=== PATIENT | female | born 1985 | race Caucasian/White ===

== ENCOUNTER 2017-09-18 11:06 | Emergency (ER) | payer OTHER ==
[2017-09-18 12:10] VITALS: BP 127/64
--- NOTE | 2017-09-18 12:42 | UC ---
Respiratory Complaint HPI - HPI Summary HPI Summary: cough x 1 week chest congest, nasal congestion , pnd, no fever, no chills , no sob 2. skin rash on the palms of both hands / and platar feet x years , not itchy , has been using antifungal cram wo improvement - History of Current Complaint Chief Complaint: UCGeneralIllness Stated Complaint: COUGH/NAUSEA/SKIN COMPLAINT Time Seen by Provider: 09/18/17 12:11 Hx Obtained From: Patient Hx Last Menstrual Period: N/A Onset/Duration: Gradual Onset, Lasting Weeks - 1, Still Present Timing: Constant Severity Initially: Moderate Severity Currently: Moderate Pain Intensity: 0 Pain Scale Used: 0-10 Numeric Character: Cough: Nonproductive Aggravating Factors: Exertion, Deep Breaths Alleviating Factors: Nothing Associated Signs And Symptoms: Positive: URI, Nasal Congestion. Negative: Dyspnea, Fever, Chills, Pleuritic Chest Pain, Hemoptysis, Dizziness, Calf Pain, Calf Swelling - Allergies/Home Medications Allergies/Adverse Reactions: Allergies Allergy/AdvReac Type Severity Reaction Status Date / Time No Known Allergies Allergy Verified 09/18/17 12:10 PMH/Surg Hx/FS Hx/Imm Hx - Additional Past Medical History Additional PMH: gestational diabetes - Surgical History Surgical History: Yes Surgery Procedure, Year, and Place: tubal ligation 2011. c-sections x3. appendectomy. partial hysterectomy 2013 - Family History Known Family History: Positive: None, Other - positive FMH for myalgia Negative: Cardiac Disease - Social History Alcohol Use: Rare Substance Use Type: None Smoking Status (MU): Heavy Every Day Tobacco Smoker Type: Cigarettes Amount Used/How Often: 1 ppd Length of Time of Smoking/Using Tobacco: started at age 16 Have You Smoked in the Last Year: Yes - Immunization History Most Recent Tetanus Shot: 2008 OR 2009 Review of Systems Constitutional: Negative Skin: Rash Eyes: Negative ENT: Nasal Discharge Respiratory: Cough Cardiovascular: Negative Gastrointestinal: Negative Is Patient Immunocompromised?: No All Other Systems Reviewed And Are Negative: Yes Physical Exam Triage Information Reviewed: Yes Appearance: Well-Appearing, No Pain Distress, Well-Nourished Vital Signs: Initial Vital Signs Temp 98.4 F 09/18/17 12:05 Pulse 66 09/18/17 12:05 Resp 18 09/18/17 12:05 BP 127/64 09/18/17 12:05 Pulse Ox 100 01/09/18 12:05 Vital Signs Reviewed: Yes Eyes: Positive: Conjunctiva Clear ENT: Positive: Normal ENT inspection, Hearing grossly normal, Pharynx normal, Nasal congestion Neck exam: Normal Neck: Positive: Supple, Nontender, No Lymphadenopathy Respiratory: Positive: Chest non-tender, Lungs clear, Normal breath sounds Cardiovascular: Positive: RRR, No Murmur, Pulses Normal Abdomen Description: Positive: Nontender, No Organomegaly, Soft Musculoskeletal: Positive: Strength Intact, ROM Intact, No Edema Skin: Positive: rashes - macular rash bilateral palms and plantar foot bilateral UC Diagnostic Evaluation - Laboratory O2 Sat by Pulse Oximetry: 100 Respiratory Course/Dx - Differential Dx/Diagnosis Provider Diagnoses: viral bronchitis. tinea manus. tinea pedis. tinea unguium Discharge - Discharge Plan Condition: Stable Disposition: HOME Prescriptions: Guaifenesin-Codeine [Cheratussin AC] 10 ml PO Q8H #120 ml MDD 30 ml Patient Education Materials: Acute Bronchitis (ED), Skin Yeast Infection (ED) Referrals: No Primary Care Phys,NOPCP [Primary Care Provider] - 7 Days Jordy VILLAFANA,Cuong Walker [Medical Doctor] - As Soon As Possible Additional Instructions: fungal infection of hands/ feet and fingernails will make a referral to Dermatology for eval and tx
== END 2017-09-18 12:31 | disposition home or self-care (01) ==
LOC: UCCORT 11:06
DX: J20.8 Acute bronchitis due to other specified organisms (principal); B35.2 Tinea manuum; B35.3 Tinea pedis; B35.1 Tinea unguium; Z72.0 Tobacco use
CPT/HCPCS: 99212; G0463

== ENCOUNTER 2017-11-05 13:24 | Emergency (ER) | payer OTHER ==
[2017-11-05 14:52] VITALS: BP 126/74
--- NOTE | 2017-11-05 14:59 | ED ---
Respiratory - HPI Summary HPI Summary: 31 yr old with influenza in her household presents here with nasal congestion, scratchy throat, cough, myalgias, chills. Onset yesterday. Her was positive for flu according to the patient. The patient states she did not get the flu vaccine. She denies other complaints. - History of Current Complaint Chief Complaint: UCGeneralIllness Stated Complaint: HEADACHE CHILLS SORE THROAT Time Seen by Provider: 11/05/17 14:44 Pain Intensity: 2 - Allergy/Home Medications Allergies/Adverse Reactions: Allergies Allergy/AdvReac Type Severity Reaction Status Date / Time No Known Allergies Allergy Verified 11/05/17 14:48 Home Medications: Home Medications DOXYcycline CAP(*) [DOXYcycline 100MG CAP(*)] 100 mg PO BID 11/05/17 [History Confirmed 11/05/17] Methotrexate TAB* 2.5 mg PO Q7D 11/05/17 [History Confirmed 11/05/17] PMH/Surg Hx/FS Hx/Imm Hx Endocrine/Hematology History: Comment Only: Hx Diabetes - gestational diabetes - Surgical History Surgery Procedure, Year, and Place: tubal ligation 2011. c-sections x3. appendectomy. partial hysterectomy 2013 Infectious Disease History: No Infectious Disease History: Reports: Hx Shingles - 2009 Denies: Traveled Outside the [place] in Last 30 Days - Family History Known Family History: Positive: None, Other - positive FMH for myalgia Negative: Cardiac Disease - Social History Alcohol Use: None Substance Use Type: Reports: None Smoking Status (MU): Heavy Every Day Tobacco Smoker Type: Cigarettes Amount Used/How Often: 1 ppd Length of Time of Smoking/Using Tobacco: started at age 16 Have You Smoked in the Last Year: Yes Review of Systems Positive: Fever, Chills Positive: Sore Throat, Nasal Discharge Positive: Cough Positive: Myalgia Positive: Headache All Other Systems Reviewed And Are Negative: Yes Physical Exam Triage Information Reviewed: Yes Vital Signs On Initial Exam: Initial Vitals Temp Pulse Resp BP Pulse Ox 99.2 F 79 18 126/74 100 11/05/17 14:44 11/05/17 14:44 11/05/17 14:44 11/05/17 14:44 11/05/17 14:44 Vital Signs Reviewed: Yes Appearance: Positive: Well-Appearing, No Pain Distress Skin: Positive: Warm Head/Face: Positive: Normal Head/Face Inspection Eyes: Positive: EOMI Neck: Positive: Nontender Respiratory/Lung Sounds: Positive: Clear to Auscultation, Breath Sounds Present Cardiovascular: Positive: RRR. Negative: Murmur Abdomen Description: Positive: Nontender Musculoskeletal: Positive: Strength/ROM Intact Neurological: Positive: Sensory/Motor Intact, Alert, Oriented to Person Place, Time, CN Intact II-III Psychiatric: Positive: Normal - Oscar Coma Scale Best Eye Response: 4 - Spontaneous Best Motor Response: 6 - Obeys Commands Best Verbal Response: 5 - Oriented Coma Scale Total: 15 Diagnostics - Vital Signs Vital Signs Temp Pulse Resp BP Pulse Ox 11/05/17 14:44 99.2 F 79 18 126/74 100 - Laboratory Lab Statement: Any lab studies that have been ordered have been reviewed, and results considered in the medical decision making process. Disposition - Course Course Of Treatment: 31 yr old female with Influenza symptoms and she states confirmed cases in her household. Rx with tamiflu. - Diagnoses Provider Diagnoses: Influenza Discharge - Discharge Plan Condition: Good Disposition: HOME Prescriptions: Oseltamivir CAP* [Tamiflu CAP*] 75 mg PO BID #10 cap Patient Education Materials: Influenza (ED) Referrals: Meera Yin MD [Primary Care Provider] - 2 Days
== END 2017-11-05 15:03 | disposition home or self-care (01) ==
LOC: UCCORT 13:24
DX: J11.1 Influenza due to unidentified influenza virus with other respiratory manifestations (principal); Z20.828 Contact with and (suspected) exposure to other viral communicable diseases; F17.210 Nicotine dependence, cigarettes, uncomplicated
CPT/HCPCS: 99212; G0463

== ENCOUNTER 2018-08-13 10:20 | Emergency (ER) | payer OTHER ==
[2018-08-13 11:13] VITALS: BP 126/72
--- NOTE | 2018-08-13 11:32 | UC ---
Throat Pain/Nasal Tam HPI - HPI Summary HPI Summary: sore throat x 2 days no nasal congestion , no cough , no fever, no chills - History of Current Complaint Chief Complaint: UCGeneralIllness Stated Complaint: ST,COUGH Time Seen by Provider: 08/13/18 11:17 Hx Obtained From: Patient Hx Last Menstrual Period: N/A ?: No Onset/Duration: Gradual Onset, Lasting Days - 2, Still Present Severity: Mild Pain Intensity: 1 Cough: None Associated Signs & Symptoms: Negative: Sinus Discomfort, Nasal Discharge, Fever , Vomiting - Allergies/Home Medications Allergies/Adverse Reactions: Allergies Allergy/AdvReac Type Severity Reaction Status Date / Time No Known Allergies Allergy Verified 08/13/18 11:11 Home Medications: Home Medications Ustekinumab [Stelara] 45 mg SUBCUT SEE INSTRUCTIONS 08/13/18 [History Confirmed 08/13/18] PMH/Surg Hx/FS Hx/Imm Hx - Additional Past Medical History Additional PMH: Psoriasis - Surgical History Surgical History: Yes Surgery Procedure, Year, and Place: tubal ligation 2010. c-sections x3. appendectomy. partial hysterectomy 2012 - Family History Known Family History: Positive: None, Other - positive FMH for myalgia Negative: Cardiac Disease - Social History Alcohol Use: None Substance Use Type: None Smoking Status (MU): Heavy Every Day Tobacco Smoker Type: Cigarettes Amount Used/How Often: 1 PPD (currently quitting at 3 cigs/day) Length of Time of Smoking/Using Tobacco: Since Age 16 Have You Smoked in the Last Year: Yes - Immunization History Most Recent Tetanus Shot: 2008 OR 2009 Review of Systems All Other Systems Reviewed And Are Negative: Yes Constitutional: Positive: Negative Eyes: Positive: Negative ENT: Positive: Sore Throat Respiratory: Positive: Negative Cardiovascular: Positive: Negative Is Patient Immunocompromised?: No Physical Exam Triage Information Reviewed: Yes Appearance: Well-Appearing, No Pain Distress, Well-Nourished Vital Signs: Initial Vital Signs Temp 98.3 F 08/13/18 11:10 Pulse 67 08/13/18 11:10 Resp 16 08/13/18 11:10 BP 126/72 08/13/18 11:10 Pulse Ox 98 08/13/18 11:10 Vital Signs Reviewed: Yes Eye Exam: Normal Eyes: Positive: Conjunctiva Clear ENT: Positive: Normal ENT inspection, Hearing grossly normal, Pharyngeal erythema, TMs normal. Negative: Nasal drainage Neck: Positive: Supple, Nontender, No Lymphadenopathy Respiratory: Positive: Chest non-tender, Lungs clear, Normal breath sounds Cardiovascular: Positive: RRR, No Murmur, Pulses Normal Throat Pain/Nasal Course/Dx - Differential Dx/Diagnosis Provider Diagnosis: Pharyngitis Discharge - Sign-Out/Discharge Documenting (check all that apply): Patient Departure All imaging exams completed and their final reports reviewed: No Studies - Discharge Plan Condition: Stable Disposition: HOME Patient Education Materials: Pharyngitis (ED) Referrals: Meera Yin MD [Primary Care Provider] - If Needed Additional Instructions: negative rapid strep viral illness - Billing Disposition and Condition Condition: STABLE Disposition: Home
== END 2018-08-13 11:43 | disposition home or self-care (01) ==
LOC: UCCORT 10:20
DX: J02.9 Acute pharyngitis, unspecified (principal); F17.210 Nicotine dependence, cigarettes, uncomplicated
CPT/HCPCS: 87651; 99211; G0463

== ENCOUNTER 2019-10-21 17:28 | Emergency (ER) | payer OTHER ==
[2019-10-21 19:03] VITALS: BP 110/76
--- NOTE | 2019-10-21 19:04 | UC ---
UC General HPI - HPI Summary HPI Summary: intellectual property lawyer reviewed -Pt c/o headache, bodyache x2 weeks. Fever last week; now resolved. Stomach ache since Sunday night. Diarrhea started yesterday. No nausea or vomitting. Last bowel movement this afternoon; diarrhea is improving. Taking tylenol and nyquil prn w/ relief. - History of Current Complaint Chief Complaint: UCRespiratory Stated Complaint: FAYE,COUGH Time Seen by Provider: 10/21/19 18:53 Hx Obtained From: Patient Hx Last Menstrual Period: N/A Pain Intensity: 4 - Allergy/Home Medications Allergies/Adverse Reactions: Allergies Allergy/AdvReac Type Severity Reaction Status Date / Time No Known Allergies Allergy Verified 10/21/19 18:58 PMH/Surg Hx/FS Hx/Imm Hx - Surgical History Surgical History: Yes Surgery Procedure, Year, and Place: tubal ligation 2010. c-sections x3. appendectomy. partial hysterectomy 2012 - Family History Known Family History: Positive: None, Other - positive FMH for myalgia Negative: Cardiac Disease - Social History Alcohol Use: None Substance Use Type: None Smoking Status (MU): Heavy Every Day Tobacco Smoker Type: Cigarettes Amount Used/How Often: 1 PPD Length of Time of Smoking/Using Tobacco: Since Age 16 Have You Smoked in the Last Year: Yes - Immunization History Most Recent Tetanus Shot: 2008 OR 2009 Physical Exam Vital Signs: Initial Vital Signs Temp 97.9 F 10/21/19 18:59 Pulse 72 10/21/19 18:59 Resp 16 10/21/19 18:59 BP 110/76 10/21/19 18:59 Pulse Ox 100 10/21/19 18:59 Course/Dx - Course Course Of Treatment: Influenza a/b neg Will start azithromycin, albuterol inh (has used inhalers in the past, but not regularly). Work note. Questions as posed answered to the best of my ability. - Diagnoses Provider Diagnosis: Bronchitis Discharge ED - Sign-Out/Discharge Documenting (check all that apply): Patient Departure All imaging exams completed and their final reports reviewed: No Studies - Discharge Plan Condition: Stable Disposition: HOME Prescriptions: Albuterol HFA INHALER* [Ventolin HFA Inhaler*] 1 - 2 puff INH Q4H PRN #1 mdi PRN Reason: Wheezing Azithromyxin JENNIFER (NF) [Z-Jennifer (Zithromax) 250 mg tabs #6] 2 tab PO .TODAY, THEN 1 DAILY #6 tab Patient Education Materials: Acute Bronchitis (ED) Forms: *Work Release Referrals: Meera Yin MD [Primary Care Provider] - - Billing Disposition and Condition Condition: STABLE Disposition: Home
[2019-10-21 19:31] LABS: Influenza A Molecular Negative (Negative); Influenza B Molecular Negative (Negative)
== END 2019-10-21 20:09 | disposition home or self-care (01) ==
LOC: UCCORT 17:28
DX: J40 Bronchitis, not specified as acute or chronic (principal); R19.7 Diarrhea, unspecified; F17.210 Nicotine dependence, cigarettes, uncomplicated
CPT/HCPCS: 99212; G0463